=== PATIENT | female | born 1995 | race Caucasian/White ===

== ENCOUNTER 2022-07-30 09:37 | Emergency (ER) | payer SELFPAY ==
[~2022-07-30] VITALS: Ht 170.2 cm; Wt 79.4 kg
[2022-07-30] MEDS ORDERED: PENICILLIN G BENZATHINE LA 1.2 MU TBX IM STA (10:14)
[2022-07-30] MEDS ORDERED: IBUPROFEN 100 MG/5 ML SUSP PO ONE (10:15)
== END 2022-07-30 10:35 | disposition home or self-care (01) ==
LOC: ER 10:06
DX: R50.9 Fever, unspecified (principal); J02.0 Streptococcal pharyngitis
CPT/HCPCS: 99282; J0561